=== PATIENT | male | born 1970 | race Caucasian/White ===

== ENCOUNTER → 2016-05-25 | Outpatient (CLI) | payer BC ==
--- NOTE | 2016-05-25 07:46 | MR ---
EXAMINATION TYPE: MR brain wo/w con DATE OF EXAM: 05/25/2016 7:34 AM COMPARISON: NONE HISTORY: Memory loss per order. Hand tremors also per patient. TECHNIQUE: Multiplanar, multisequence images of the brain and brainstem is performed without and with IV contras t, utilizing 20 mL intravenous MultiHance . FINDINGS: Diffusion weighted images demonstrate no evidence of a recent infarct or other diffusion ab normality. There is no worrisome extra-axial fluid collection. The ventricular system and cisternal spaces are normal in size and appearance. 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 The brain volum e is age appropriate. Suprasellar cistern is maintained. There are few scattered foci of T2 hyperinte nsity seen throughout the white matter bilaterally. Approximately 4-6 lesions are felt present. Lesio ns are nonspecific in appearance and distribution. Midline structures demonstrate normal morphology. The craniocervical junction appears within normal limits. Post contrast images demonstrate no abnormal enhancement. The dural venous sinuses appear pa tent. There is moderate to severe mucosal thickening involving ethmoid sinuses bilaterally. Mild to m oderate mucosal thickening involving bilateral maxillary sinuses is present. There is 2 cm mucous ret ention cyst or polyp in the inferior left maxillary sinus. There is mild mucosal thickening involving frontal sinuses bilaterally. The globes are intact bilaterally. IMPRESSION: Minimal nonspecific white matter changes. No suspicious enhancing mass identified. 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 No hydrocephalus is seen. Chronic paranasal si nus disease is noted.
== END | disposition home or self-care (01) ==
LOC: RADMRIMAIN 06:45
PROVIDERS: ATTEND Family Medicine
DX: R90.82 White matter disease, unspecified (principal)
CPT/HCPCS: 70553; A9577

== ENCOUNTER → 2019-04-26 | Outpatient (CLI) | payer BC ==
[2019-04-26 17:31] LABS: HCT 41.4 % (39.0-53.0); HGB 13.8 gm/dL (13.0-17.5); MCHC 33.4 g/dL (31.0-37.0); MCV 89.8 fL (80.0-100.0); Mean Platelet Volume 7.2; Platelet Count 291 k/uL (150-450); RBC 4.62 m/uL (4.30-5.90); RDW 12.7 % (11.5-15.5); WBC 4.8 k/uL (3.8-10.6)
[2019-04-27 00:26] LABS: Anion Gap 6.3 mmol/L (4.00-12.00); Calcium 9.2 mg/dL (8.7-10.3); Carbon Dioxide 29.7 mmol/L (21.6-31.8); Potassium 4.9 mmol/L (3.5-5.5)
[2019-04-27 02:21] LABS: Hemoglobin A1C 5.6 % (4.0-6.0)
== END | disposition home or self-care (01) ==
LOC: LABWHC1 16:40
DX: Z01.812 Encounter for preprocedural laboratory examination (principal); M17.12 Unilateral primary osteoarthritis, left knee; M25.562 Pain in left knee
CPT/HCPCS: 36415; 80048; 83036; 85027; 85610; 87070

== ENCOUNTER → 2020-02-26 | Outpatient (CLI) | payer BC ==
[2020-02-26 09:50] LABS: Basophils # (A) 0.1 k/uL (0-0.2); Basophils % (A) 2 %; Eosinophils # (A) 0.3 k/uL (0-0.7); Eosinophils % (A) 6 %; HGB 14.9 gm/dL (13.0-17.5); Lymphocytes % (A) 23 %; MCH 31.1 pg (25.0-35.0); MCHC 33.8 g/dL (31.0-37.0); Mean Platelet Volume 6.8; Monocytes # (A) 0.3 k/uL (0-1.0); Monocytes % (A) 8 %; Neutrophils # (A) 2.5 k/uL (1.3-7.7); Neutrophils % (A) 58 %; Platelet Count 296 k/uL (150-450); RBC 4.79 m/uL (4.30-5.90); RDW 12.5 % (11.5-15.5); WBC 4.3 k/uL (3.8-10.6)
[2020-02-26 10:06] LABS: Appearance,Urine Clear (Clear); Bilirubin,Urine Negative (Negative); Blood,Urine Negative (Negative); Color,Urine Light Yellow; Glucose,Urine (UA) Negative (Negative); Ketones,Urine Negative (Negative); Leukocyte Esterase,Urine Negative (Negative); Nitrite,Urine Negative (Negative); Protein,Urine Negative (Negative); Urobilinogen,Urine <2.0 mg/dL (<2.0)
[2020-02-26 20:23] LABS: Albumin 4.7 g/dL (3.80-4.90); Albumin/Globulin Ratio 2.24 (1.60-3.17); Anion Gap 9.2 mmol/L (4.00-12.00); BUN/Creat Ratio 15.56 Ratio (12.00-20.00); Calcium 9.8 mg/dL (8.7-10.3); Carbon Dioxide 26.8 mmol/L (21.6-31.8); Chol/HDL Ratio 3.16; Globulin 2.1 g/dL (1.6-3.3); Non-African American GFR(CKD) 99.2 (60.0-200.0); Potassium 5.4 mmol/L (3.5-5.5); Prostate Specific Antigen 0.6 ng/mL (0.0-3.5); Total Bilirubin 0.5 mg/dL (0.2-1.2); Total Protein 6.8 g/dL (6.2-8.2)
== END | disposition home or self-care (01) ==
LOC: LABWHC1 08:08
PROVIDERS: ATTEND Internal Medicine
DX: I48.0 Paroxysmal atrial fibrillation (principal); E78.2 Mixed hyperlipidemia; N40.0 Benign prostatic hyperplasia without lower urinary tract symptoms
CPT/HCPCS: 36415; 80053; 80061; 81003; 84153; 84443; 85025

== ENCOUNTER → 2020-03-07 | Outpatient (CLI) | payer BC | END | disposition home or self-care (01) | LOC: LABWHC1 13:19 | PROVIDERS: ATTEND Internal Medicine | DX: Z20.828 Contact with and (suspected) exposure to other viral communicable diseases (principal) | CPT/HCPCS: U0003; C9803 ==

== ENCOUNTER 2021-08-28 08:19 | Day surgery (SDC) | payer BC ==
[2021-08-26 14:52] VITALS: BMI 31.8
[2021-08-28 08:45] VITALS: TEMP 97.7
[2021-08-28] MEDS ORDERED: LACTATED RINGERS 1,000 ML IV ONE ×2 (08:52)
[2021-08-28] MEDS ORDERED: PROPOFOL 10 MG/ML 20 ML VIAL IV ONE (09:19)
--- NOTE | 2021-08-28 09:32 | P.PCN ---
Date of Procedure: 08/28/21 Procedure(s) Performed: BRIEF HISTORY: Patient is a 51-year-old pleasant white male scheduled for an elective colonoscopy as a part of screening for colorectal neoplasia. PROCEDURE PERFORMED: Colonoscopy. PREOPERATIVE DIAGNOSIS: Screening for colon cancer. IV sedation per Anesthesia. PROCEDURE: After informed consent was obtained, the patient, was brought into the endoscopy unit. IV sedation was administered by Anesthesia under continuous monitoring. Digital rectal examination was normal. Initially the Olympus CF-160 flexible video colonoscope was then inserted in the rectum, gradually advanced into the cecum without any difficulty. Careful examination was performed as the scope was gradually being withdrawn. Ileocecal valve and the appendiceal orifice were visualized and appeared normal. Prep was excellent. Mucosa of the cecum, ascending colon, transverse colon, descending colon, sigmoid colon, and rectum appeared normal. Retroflexion was performed in the rectum and no lesions were seen. The patient tolerated the procedure well. IMPRESSION: Normal-appearing colon from rectum to cecum with no evidence of colorectal neoplasia . RECOMMENDATIONS: Findings of this examination were discussed with the patient as well as his family. He was advised to have a repeat screening colonoscopy in 10 years.
[2021-08-28] MEDS ORDERED: IV FLUID CONTINUATION 800 ML IV ONE (09:43)
[2021-08-28 09:59] VITALS: BP 124/82; PULSE 64; RESP 20
== END 2021-08-28 10:08 ==
LOC: ORWHC2ENDO 08:19
PROVIDERS: ATTEND Internal Medicine Gastroenterology
DX: Z12.11 Encounter for screening for malignant neoplasm of colon (principal); I48.91 Unspecified atrial fibrillation; I49.9 Cardiac arrhythmia, unspecified; I10 Essential (primary) hypertension; Z79.82 Long term (current) use of aspirin; Z79.899 Other long term (current) drug therapy; Z88.8 Allergy status to other drugs, medicaments and biological substances
CPT/HCPCS: 45378; J2704